=== PATIENT | female | born 1970 | race Two or more races ===

== ENCOUNTER 2024-10-14 10:45 | Emergency (ER) | payer SELFPAY ==
[~2024-10-14] VITALS: Ht 167.6 cm; Wt 75.0 kg
[2024-10-14 10:51] VITALS: BP 156/105; PULSE 92; RESP 18; TEMP 36.1; O2SAT 97
== END 2024-10-14 13:22 | disposition left against medical advice (07) ==
LOC: ER 10:45
DX: F10.129 Alcohol abuse with intoxication, unspecified (principal); R51.9 Headache, unspecified; Y90.9 Presence of alcohol in blood, level not specified
CPT/HCPCS: 70450; 99284; Z7610